=== PATIENT | male | born 1930 | race Caucasian/White ===

== ENCOUNTER 2017-01-15 18:24 | Inpatient (IN) | payer OTHER ==
--- NOTE | 2017-01-15 18:49 | PDOC ---
Fall HPI - General Chief Complaint: Fall Stated Complaint: FALL WITH RIGHT HIP/THIGH PAIN Date Seen by Provider: 01/15/17 Time Seen by Provider: 18:35 Source: POSITIVE: Patient, EMS Nurse's Notes Reviewed & Considered: Yes EMS Report Reviewed & Considered: Verbal - History of Present Illness Initial Comments: The patient is an 86-year-old male who is brought to the emergency department by ambulance from the half-way with complaints of right hip pain. He apparently fell getting into or out of bed and landed on his right hip. He was found by half-way staff on the floor. He is complaining of pain primarily in his right hip. He denies hitting his head and denies loss of consciousness. He denies any other associated injuries or complaints. He does not have any known history of hip surgery. Have you received a tetanus shot in the past 10 years?: Unknown - Patient Home Medications Home Medications: Home Medications Acetaminophen [Acetaminophen Extra Strength] 2 tab PO Q6H PRN tab 12/20/16 Atorvastatin Calcium 1 tab PO QHS tab 12/20/16 Docusate Sodium [Colace] 1 cap PO BID cap 12/20/16 Metoprolol Tartrate [Lopressor] 1 tab PO BID tab 12/20/16 Amlodipine Besylate 1 tab PO QD tab 12/21/16 Aspirin 1 tab PO QD tab 12/21/16 Calcium Carbonate [Antacid] 1 tab PO TID tab 12/21/16 Cholecalciferol (Vitamin D3) [Vitamin D3] 1 tab PO QD tab 12/21/16 Famotidine 1 tab PO QD tab 12/21/16 Isosorbide Mononitrate 15 mg PO QD tab 12/21/16 Levothyroxine Sodium 1 tab PO QD tab 12/21/16 Polyethylene Glycol 3350 [Miralax] 17 gm PO DAILY packet 12/21/16 Sodium Polystyrene Sulfonate [Kayexalate] 15 gm PO WEEKLY 01/15/17 - Patient Allergies Allergies/Adverse Reactions: Allergies Allergy/AdvReac Type Severity Reaction Status Date / Time Penicillins Allergy NAUSEA Verified 01/15/17 18:38 Past Medical History Past Medical History Reviewed: Other (please comment) (Written documentation reviewed) ROS - Limitations ROS Limitations: No Limitations (Review of systems otherwise noncontributory) Fall Physical Exam - General Appearance General Appearance: POSITIVE: Alert, Cooperative, No Acute Distress - HEENT HEENT: POSITIVE: Head Inspection Nml - Neck Neck: POSITIVE: Painless ROM, Trachea Midline - Respiratory / CVS Respiratory / CVS: POSITIVE: Breath Sounds Normal, No Respiratory Distress, Heart Sounds Normal, Regular Rate/Rhythm - Abdomen Abdomen: Soft: (All Quadrants), Denies Tenderness: (All Quadrants) Additional Abdominal Details: Pelvis is stable and nontender - Neuro / Psych Neuro / Psych: POSITIVE: Other (No focal neurologic deficits) - Extremities Additional Extremities Details: Examination of the right lower extremity reveals no obvious deformity or swelling to the right hip, he does have limited range of motion of the hip secondary to pain, no foreshortening of the leg Fall Progress - Results Reviewed by me Xrays/CTs/US Reviewed by me: Yes Discussed with Radiologist: Yes Radiology Findings: X-ray of the right hip reveals a femoral neck fracture on the right. CT scan of the pelvis reveals a comminuted right femoral neck fracture per radiologist. Lab Results Reviewed: Yes Lab Results:: Laboratory Results 01/15/17 Range/Units 19:57 WBC 7.34 (4.8-10.8) 10^3/uL RBC 2.63 L (4.70-6.10) 10^6/uL Hgb 7.9 L (14.0-18.0) g/dL Hct 25.9 L (42.0-52.0) % MCV 98.5 H (80-90) FL MCH 30.0 (27-31) PG MCHC 30.5 L (33-37) g/dL RDW Std Deviation 50.8 H (39-50) fL RDW Coeff of Sky 14.8 H (11.5-14.5) % Plt Count 243 (140-350) 10*3/uL MPV 9.5 (7.4-12.2) FL Immature Gran % (Auto) 0.3 (0-5) % Neut % (Auto) 67.2 (50-80) % Lymph % (Auto) 14.0 (10-50) % Sac % (Auto) 12.8 (5-15) % Eos % (Auto) 5.4 (0-8) % Baso % (Auto) 0.3 (0-1) % Immature Gran # (Auto) 0.02 10*3/UL Neut # (Auto) 4.93 10*3/UL Lymph # (Auto) 1.03 10*3/uL Sac # (Auto) 0.94 H (0.3-0.8) 10*3/UL Eos # (Auto) 0.40 10*3/UL Baso # (Auto) 0.02 10*3/UL WBC Morphology Comment Normal morphology (NORM) Plt Morphology Comment Normal morphology (NORM) RBC Morph Comment Normal morphology (NORM) PT 10.9 (9.7-11.4) secs INR 1.06 (0.00-5.90) N/A Sodium 142 (135-145) meq/L Potassium 4.7 (3.8-5.2) meq/L Chloride 107 (98-112) meq/L Carbon Dioxide 20 L (23-33) meq/L Anion Gap 15 (5-20) BUN 48 H (7-22) mg/dL Creatinine 4.3 H (0.70-1.50) mg/dL Estimated GFR Filler In BUN/Creatinine Ratio 11.16 (6-20) Glucose 116 H (78-110) mg/dL Calculated Osmolality 307.0 H (267-292) mOsm/kg Calcium 8.3 L (8.7-10.7) mg/dL Phosphorus 5.6 H (2.4-4.3) mg/dl Magnesium 2.1 (1.6-2.4) mg/dL Total Bilirubin 1.1 (0.3-1.2) mg/dL AST 49 (21-57) IU/L ALT 65 (21-72) IU/L Alkaline Phosphatase 912 H (38-126) IU/L Total Protein 6.9 (6.1-8.0) g/dL Albumin 3.1 L (3.5-4.8) g/dL Globulin 3.8 (2.50-4.10) g/dL Albumin/Globulin Ratio 0.80 L (1.3-2.0) mg/g EKG Interpreted/Reviewed By Me:: Yes EKG Interpretation:: POSITIVE: Normal Sinus Rhythm, Normal Rate, Normal Intervals, Normal QRS, Normal ST/T - Patient's Progress MDM / ED Course: Shortly after arrival x-rays of the right hip were obtained revealing an impacted femoral neck fracture. An IV was established and blood work was drawn. Dr. Hendrix was subsequently consulted and he reviewed the patient's x -rays. He was concerned that the fracture may be chronic. We do not have any prior x-rays from our facility as he has only been at the half-way here for about a month. Dr. Hendrix recommended CT of the hip which was done and reveals a comminuted fracture of the right femoral neck. We did contact the half-way to find out the patient's current weightbearing status. They stated that he "can bear weight however they usually don't let him because he is too weak" they report that he generally stands and transfers with assistance from the wheelchair to his bed. The patient himself told me that he uses a walker however I am unsure how reliable his history is. The patient does have a history of chronic renal failure and has a creatinine of 4.3 which is unchanged from what it was 2 weeks ago. He also has a history of peripheral vascular disease and previous stroke as well as history of COPD. I did discuss the patient with Dr. Amaro who has agreed to admit the patient. Dr. Hendrix will see the patient in the morning. He is unsure if the patient would be a surgical candidate or not. Findings were discussed with the patient. - Consult Counseled: POSITIVE: Patient, RE: Radiology Results, RE: DX, RE: Need for F/U Patient Care Time - Estimated PCT Patient Care Time (In Minutes): 30 Vital Signs - Recent Vital Signs Vital Signs: Vital Signs (Last 8 hours) Temp Pulse Pulse Resp BP BP Pulse Ox 01/15/17 21:00 97.6 F 64 16 149/79 94 01/15/17 20:40 97.3 F 59 L 20 143/41 95 01/15/17 18:44 97.5 F 60 20 151/72 98 01/15/17 18:24 60 20 151/72 98 - VS Reviewed Vital Signs Reviewed: Yes Discharge Clinical Impression: Fracture of neck of femur, Chronic renal failure, Anemia Discharge Disposition: Admit to Inpatient Condition: Stable Date Decision to Admit to Inpatient: 01/15/17 Time Decision to Admit to Inpatient: 19:45
[2017-01-15] MEDS ORDERED: NORMAL SALINE 10 ML SYRINGE FLUSH IVP PRN ×2 (19:23→20:57)
--- NOTE | 2017-01-15 19:40 | EKG ---
[address] [place] [address] Measurements Intervals [place] Rate: 59 P: 61 GA: 192 QRS: -42 QRSD: 117 T: 125 QT: 434 QTc: 433 Interpretive Statements SINUS BRADYCARDIA MARKED LEFT AXIS DEVIATION [QRS AXIS < -30] POSSIBLE LATERAL MYOCARDIAL INFARCTION [30 ms Q WAVE IN I/aVL/V5/V6], OF INDETERMINATE AGE No previous ECG available for comparison Electronically Signed On 01-16-17 08:08:32 MDT by Sinan Buck MD [email or web address]
[2017-01-15] MEDS: Sodium Chloride 0.9% 1,000 ML PRIMARY IV ONE ×2 (19:50→22:09)
[2017-01-15 20:01] LABS: BASOPHILS # (AUTO) 0.02 10*3/UL; BASOPHILS % (AUTO) 0.3 % (0-1); EOSINOPHILS % (AUTO) 5.4 % (0-8); HEMATOCRIT 25.9 % (42.0-52.0); HEMOGLOBIN 7.9 g/dL (14.0-18.0); LYMPHOCYTES # (AUTO) 1.03 10*3/uL; MEAN CORPUSCULAR HGB CONC 30.5 g/dL (33-37); MEAN CORPUSCULAR VOLUME 98.5 FL (80-90); MEAN PLATELET VOLUME 9.5 FL (7.4-12.2); MONOCYTES # (AUTO) 0.94 10*3/UL (0.3-0.8); MONOCYTES % (AUTO) 12.8 % (5-15); NEUTROPHILS # (AUTO) 4.93 10*3/UL; NEUTROPHILS % (AUTO) 67.2 % (50-80); RED BLOOD COUNT 2.63 10^6/uL (4.70-6.10)
[2017-01-15 20:03] LABS: PLATELET MORPHOLOGY COMMENT NORMAL MORPHOLOGY (NORM); RBC MORPHOLOGY COMMENT NORMAL MORPHOLOGY (NORM); WBC MORPHOLOGY COMMENT NORMAL MORPHOLOGY (NORM)
[2017-01-15 20:12] LABS: BLOOD UREA NITROGEN 48 mg/dL (7-22); BUN/CREATININE RATIO 11.16 (6-20); CALCIUM 8.3 mg/dL (8.7-10.7); MAGNESIUM 2.1 mg/dL (1.6-2.4); SERUM ALBUMIN 3.1 g/dL (3.5-4.8)
[2017-01-15] MEDS ORDERED: ACETAMINOPHEN 500 MG TABLET PO PRN (20:57)
[2017-01-15] MEDS ORDERED: LIDOCAINE W/ SODIUM BICARB 0.5 ML SYR SUBD PRN (20:57)
[2017-01-15] MEDS ORDERED: ONDANSETRON 4 MG/2 ML VIAL IVP PRN (20:57)
--- NOTE | 2017-01-15 20:57 | DI ---
HISTORY: Right hip pain. FINDINGS: There is a comminuted fracture involving the neck of the right femur. IMPRESSION: 1. Comminuted fracture involving the neck of the right femur.
--- NOTE | 2017-01-15 21:01 | DI ---
HISTORY: Right hip pain. TECHNIQUE: Contiguous axial unenhanced images of the pelvis were obtained and submitted for interpre tation. FINDINGS: There is a comminuted subcapital fracture involving the neck of the right femur. The pubic rami appear intact.The sacrum appears intact. There is coarsened trabeculation compatible with osteopenia. There is atherosclerotic calcification involving the distal abdominal aorta. The prostate gland is p rominent. The urinary bladder is irregular, and thickened. There is air within the urinary bladder which could be iatrogenic. Bilateral inguinal hernias are noted. There is scattered colonic diverti culosis. There is fecal impaction. The acetabulum does not appear fractured. There is no dislocation. IMPRESSION: 1. There is a comminuted subcapital fracture involving the neck of the right femur. 2. There is coarsened trabeculation compatible with osteopenia.
[2017-01-15] MEDS: HEPARIN 5000 UNIT/1 ML SUBCUT SCH (22:08)
[2017-01-15] MEDS: Metoprolol TARTRATE Tab 50 MG TAB PO SCH (22:08)
[2017-01-15] MEDS: DOCUSATE 100 MG CAPSULE PO SCH (22:08)
--- NOTE | 2017-01-15 23:11 | PDOC ---
History and Physical - History of Present Illness Date and Time of Service: 01/15/2017, 2305 Chief Complaint: Right hip pain History of Present Illness: This is a pleasant but very demented 86-year-old male who appears somewhat disheveled, and overall in a poor state of health. He apparently fell out of bed at [facility] and complained of right hip pain. He was found to have a comminuted femoral neck fracture on the right side that was confirmed by both x-ray and CT scan tonight. Patient is also known to be in renal failure which appears to be chronic with a creatinine of 4.3, has had a stroke in the past, has recently been homeless, has left facial droop, and a history of smoking and drinking. Other than that I cannot obtain any history from the patient and in fact he told me initially that my "elbow" was hurting. When I pointed to mild low, he said no right here and indicated that his hip was hurting. He however is resting comfortably in bed, and is not requiring any opiate medications for pain. I notice his alkaline phosphatase is also increased and it was prior to this fracture in December 2016. No liver enzyme elevation, and no imaging of the abdomen has been done tonight. Exacerbating factors cannot be determined due to the dementia. The patient did not try any interventions prior to being [facility] the [facility] to [facility] room. I will note that the patient apparently has no children, has 2 sisters that he states have passed on, and was recently homeless in [place], [place] prior to being admitted to [facility]. 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 The patient denied wanting any chest compressions, and does not want resuscitation. It would be futile to do this in this patient as it stands. At this time, the patient is also found to be anemic, with hemoglobin in the sevens range since December 2016, and all of these issues make this patient an extremely poor surgical candidate. Past Medical History Medical History: 1. Stroke with facial droop. Apparently this is a right- sided stroke. 2. Hypertension. 3. Tobacco abuse. 4. Alcohol use although none currently. 5. Hypothyroidism. 6. Anemia, hemoglobin range is in the sevens to 8 since December 2016. 7. Renal failure which appears to be chronic. 8. Dementia, advanced Surgical History: The patient cannot provide me any history of his prior surgeries due to his dementia Pertinent Family History: I cannot obtain this history from the patient due to his dementia. Past Social History: History of smoking in the past. Patient states that he drank alcohol in the past. No children. No siblings that are alive. Currently resides in [facility]. Tobacco Use: Former Smoker Substance Use Type: None Alcohol Use: None Medication / Allergies Home Medications: Home Medications Medication Instructions Recorded Confirmed Type Acetaminophen [Acetaminophen Extra 2 tab PO Q6H PRN tab 12/20/16 01/15/17 History Strength] Atorvastatin Calcium 1 tab PO QHS tab 12/20/16 01/15/17 History Docusate Sodium [Colace] 1 cap PO BID cap 12/20/16 01/15/17 History Metoprolol Tartrate [Lopressor] 1 tab PO BID tab 12/20/16 01/15/17 History Amlodipine Besylate 1 tab PO QD tab 12/21/16 01/15/17 History Aspirin 1 tab PO QD tab 12/21/16 01/15/17 History Calcium Carbonate [Antacid] 1 tab PO TID tab 12/21/16 01/15/17 History Cholecalciferol (Vitamin D3) 1 tab PO QD tab 12/21/16 01/15/17 History [Vitamin D3] Famotidine 1 tab PO QD tab 12/21/16 01/15/17 History Isosorbide Mononitrate 15 mg PO QD tab 12/21/16 01/15/17 History Levothyroxine Sodium 1 tab PO QD tab 12/21/16 01/15/17 History Polyethylene Glycol 3350 [Miralax] 17 gm PO DAILY packet 12/21/16 01/15/17 History Sodium Polystyrene Sulfonate 15 gm PO WEEKLY 01/15/17 01/15/17 History [Kayexalate] Allergies/Adverse Reactions: Allergies Allergy/AdvReac Type Severity Reaction Status Date / Time Penicillins Allergy NAUSEA Verified 01/15/17 18:38 Review of Systems - Review of Systems ROS Unobtainable: Due to Mental Status (I cannot obtain any review of systems due to the patient's dementia) Exam - Vitals Vital Signs: Vital Signs Temperature 97.6 F Temperature Source Temporal Artery Scan Pulse Rate [Pulse Oximeter] 64 Pulse Rate 59 Respiratory Rate 16 Blood Pressure [Right Arm] 149/79 Blood Pressure 143/41 Pulse Ox 94 Oxygen Delivery Method Room Air Height 5 ft 5 in Weight 115 lb - General General Appearance: POSITIVE: No Acute Distress, Cooperative, Disheveled, Thin - Head Head Exam: POSITIVE: Normal Inspection, Normocephalic, Atraumatic - Eye Eye Exam: POSITIVE: No Scleral Icterus - ENT ENT Exam: POSITIVE: Mucous Membranes Moist - Neck Neck Exam: POSITIVE: Normal Inspection, No Thyromegaly - Respiratory Respiratory Exam: POSITIVE: Clear to Auscultation - Bilaterally, Breathing Non Labored - Cardiovascular Cardiovascular Exam: POSITIVE: RRR, No Murmur, No Clicks, No Gallops, No Rubs, No JVD - GI/Abdominal GI/Abdominal Exam: POSITIVE: Normal Bowel Sounds, Non Tender, Non Distended, Soft - Rectal Rectal Exam: POSITIVE: Deferred - External Exam: POSITIVE: Deferred Exam: POSITIVE: Vega Catheter in Place (Urine appears clear on exam) - Extremities Extremities Exam: POSITIVE: No Clubbing Present, No Cyanosis Present, +1 Edema ( Pedal edema bilaterally) - Back Back Exam: POSITIVE: No CVA Tenderness - Neurological Neurological Exam: POSITIVE: Alert, Speech Intact / Clear Additional Neurological Exam Details: Patient has facial droop. He is not oriented to place time or situation. He is only oriented to person. - Psychiatric Psychiatric Exam: POSITIVE: Normal Affect, Normal Mood - Integumentary Additional Integumentary Exam Details: Has a skin tear on right lower extremity is dressed, dressing is clean, dry, intact. Results - Labs CBC and BMP: 01/15/17 19:57 01/15/17 19:57 Labs - Last 24 Hours: Laboratory Results 01/15/17 Range/Units 19:57 WBC 7.34 (4.8-10.8) 10^3/uL RBC 2.63 L (4.70-6.10) 10^6/uL Hgb 7.9 L (14.0-18.0) g/dL Hct 25.9 L (42.0-52.0) % MCV 98.5 H (80-90) FL MCH 30.0 (27-31) PG MCHC 30.5 L (33-37) g/dL RDW Std Deviation 50.8 H (39-50) fL RDW Coeff of Sky 14.8 H (11.5-14.5) % Plt Count 243 (140-350) 10*3/uL MPV 9.5 (7.4-12.2) FL Immature Gran % (Auto) 0.3 (0-5) % Neut % (Auto) 67.2 (50-80) % Lymph % (Auto) 14.0 (10-50) % [place] % (Auto) 12.8 (5-15) % Eos % (Auto) 5.4 (0-8) % Baso % (Auto) 0.3 (0-1) % Immature Gran # (Auto) 0.02 10*3/UL Neut # (Auto) 4.93 10*3/UL Lymph # (Auto) 1.03 10*3/uL Sab[place] # (Auto) 0.94 H (0.3-0.8) 10*3/UL Eos # (Auto) 0.40 10*3/UL Baso # (Auto) 0.02 10*3/UL WBC Morphology Comment Normal morphology (NORM) Plt Morphology Comment Normal morphology (NORM) RBC Morph Comment Normal morphology (NORM) PT 10.9 (9.7-11.4) secs INR 1.06 (0.00-5.90) N/A Sodium 142 (135-145) meq/L Potassium 4.7 (3.8-5.2) meq/L Chloride 107 (98-112) meq/L Carbon Dioxide 20 L (23-33) meq/L Anion Gap 15 (5-20) BUN 48 H (7-22) mg/dL Creatinine 4.3 H (0.70-1.50) mg/dL Estimated GFR Executive Director Of Nursing BUN/Creatinine Ratio 11.16 (6-20) Glucose 116 H (78-110) mg/dL Calculated Osmolality 307.0 H (267-292) mOsm/kg Calcium 8.3 L (8.7-10.7) mg/dL Phosphorus 5.6 H (2.4-4.3) mg/dl Magnesium 2.1 (1.6-2.4) mg/dL Total Bilirubin 1.1 (0.3-1.2) mg/dL AST 49 (21-57) IU/L ALT 65 (21-72) IU/L Alkaline Phosphatase 912 H (38-126) IU/L Total Protein 6.9 (6.1-8.0) g/dL Albumin 3.1 L (3.5-4.8) g/dL Globulin 3.8 (2.50-4.10) g/dL Albumin/Globulin Ratio 0.80 L (1.3-2.0) mg/g - EKG Data -: EKG Interpreted by Me Rate: Normal EKG Shows Normal: Sinus Rhythm - Imaging Status: Image Reviewed by Me (Patient has a hip fracture on the right side in the femoral neck region. This is noted on the pelvic x-ray and the CT of the pelvis.) Assessment and Plan - Patient Problems (1) Fractured femoral neck Current Visit: Yes Status: Acute Qualifiers: Encounter type: initial encounter Fracture type: closed Laterality : right Qualified Description: Closed fracture of neck of right femur, initial encounter Qualifier Code(s): (S72.001A) Fracture of unspecified part of neck of right femur, initial encounter for closed fracture (2) Chronic renal failure Current Visit: Yes Status: Acute Qualifiers: Chronic kidney disease stage: stage 5 Qualified Description: Chronic renal failure, stage 5 Qualifier Code(s): (N18.5) Chronic kidney disease, stage 5 (3) Anemia Current Visit: Yes Status: Acute Qualifiers: Anemia type: unspecified type Qualified Description: Anemia, unspecified type Qualifier Code(s): (D64.9) Anemia, unspecified (4) Elevated alkaline phosphatase level Current Visit: Yes Status: Acute (5) Dementia Current Visit: Yes Status: Acute Qualifiers: Dementia type: Alzheimer's disease Alzheimer's disease onset: late- onset Dementia behavioral disturbance: without behavioral disturbance Qualified Description: Late onset Alzheimer'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 I will get CT scan imaging of the abdomen tomorrow to better look at what may be going on in the liver with this elevated alkaline phosphatase. It was elevated at the end of May, and if not related to fracture could indicate some sort of liver lesion. IV fluids for now. Tylenol when necessary for pain. I would like to avoid opiates or stronger pain medications due to the advanced dementia. Antiemetics only written for. All stop the statin given his dementia. The patient is DO NOT RESUSCITATE, he does not want compressions, and quite frankly it would be futile in this situation given his age, overall medical problems. I will recheck a hemoglobin in the morning, hold off on blood transfusion tonight. If still in the sevens, and we proceed with any sort of plan, for surgery, then we may need to consider transfusion. Overall, this patient is a very poor surgical candidate based on his age, history of stroke, renal failure, anemia preoperatively, and very poor nutrition status. It is impossible to determine a metabolic equivalent for him. If there is any way that we can avoid repairing this hip, I think that would be the right thing to do for this patient, unless his pain is severe enough that it would be palliative in nature. In addition, reading through the emergency room report regarding the patient's overall activity level does not suggest that the patient would do well in the postoperative recovery state. Orthopedics's consult to see the patient in the morning. I will try to contact the patient's power of contact center analyst further instructions and explained the situation to them when we can find the number.
[2017-01-15] MEDS ORDERED: Sodium Chloride 0.9% 1,000 ML IV SCH (23:15)
[2017-01-16] MEDS: LEVOTHYROXINE 75 MCG TABLET PO SCH (05:15)
[2017-01-16] MEDS: HEPARIN 5000 UNIT/1 ML SUBCUT SCH ×3 (05:47→21:43)
[2017-01-16 06:03] LABS: BASOPHILS # (AUTO) 0.04 10*3/UL; BASOPHILS % (AUTO) 0.6 % (0-1); EOSINOPHILS # (AUTO) 0.39 10*3/UL; EOSINOPHILS % (AUTO) 6.3 % (0-8); HEMATOCRIT 24.8 % (42.0-52.0); HEMOGLOBIN 7.6 g/dL (14.0-18.0); LYMPHOCYTES # (AUTO) 0.94 10*3/uL; MEAN CORPUSCULAR HEMOGLOBIN 30.3 PG (27-31); MEAN CORPUSCULAR HGB CONC 30.6 g/dL (33-37); MEAN CORPUSCULAR VOLUME 98.8 FL (80-90); MONOCYTES # (AUTO) 0.81 10*3/UL (0.3-0.8); MONOCYTES % (AUTO) 13.1 % (5-15); NEUTROPHILS # (AUTO) 3.98 10*3/UL; NEUTROPHILS % (AUTO) 64.5 % (50-80); RED BLOOD COUNT 2.51 10^6/uL (4.70-6.10)
[2017-01-16 06:16] LABS: PLATELET MORPHOLOGY COMMENT NORMAL MORPHOLOGY (NORM); RBC MORPHOLOGY COMMENT NORMAL MORPHOLOGY (NORM); WBC MORPHOLOGY COMMENT NORMAL MORPHOLOGY (NORM)
[2017-01-16 06:24] LABS: BLOOD UREA NITROGEN 46 mg/dL (7-22); BUN/CREATININE RATIO 11.21 (6-20); CALCIUM 8.2 mg/dL (8.7-10.7)
[2017-01-16] MEDS: HYDROcodone-APAP 5 MG -325 MG TABLET PO PRN ×2 (07:57→16:26)
--- NOTE | 2017-01-16 08:59 | ORTHO.CON ---
Consult Note - Consult Consult Date: 01/16/17 Reason for Consult: PreOp Consulation : Ortho Requesting Physician: Dr. Johnson Primary Care Provider: Macho David MD - History of Present Illness History of Present Illness: Patient is an 86-year-old demented male who was brought in from the senior care last PM with complaints of right hip pain and discomfort. Patient had a fall with increasing pain and discomfort was noted that the senior care he had very limited mobility occasionally he will get up with a walker but would require maximum assist and was very unsteady and typically was discouraged from ambulating with a walker. Interestingly he has an issue with being homeless apparently was hospitalized in [place] most recently and possibly may have sustained this fracture while there. Patient is demented gives a history of being in [place] and possibly a fall there but I think his history is unreliable because of his dementia. In any case he was brought to the emergency room x-ray CT scan were obtained with evidence of old hip fracture and was admitted. Patient also with multiple medical problems to include but not limited to significant anemia and chronic renal insufficiency. Past Medical History Medical History: 1. Stroke with facial droop. Apparently this is a right- sided stroke. 2. Hypertension. 3. Tobacco abuse. 4. Alcohol use although none currently. 5. Hypothyroidism. 6. Anemia, hemoglobin range is in the sevens to 8 since December 2016. 7. Renal failure which appears to be chronic. 8. Dementia, advanced Surgical History: The patient cannot provide me any history of his prior surgeries due to his dementia Pertinent Family History: I cannot obtain this history from the patient due to his dementia. Past Social History: History of smoking in the past. Patient states that he drank alcohol in the past. No children. No siblings that are alive. Currently resides in [facility]. Tobacco Use: Former Smoker Substance Use Type: None Alcohol Use: None Medication / Allergies Home Medications: Home Medications Medication Instructions Recorded Confirmed Type Acetaminophen [Acetaminophen Extra 2 tab PO Q6H PRN tab 12/20/16 01/15/17 History Strength] Atorvastatin Calcium 1 tab PO QHS tab 12/20/16 01/15/17 History Docusate Sodium [Colace] 1 cap PO BID cap 12/20/16 01/15/17 History Metoprolol Tartrate [Lopressor] 1 tab PO BID tab 12/20/16 01/15/17 History Amlodipine Besylate 1 tab PO QD tab 12/21/16 01/15/17 History Aspirin 1 tab PO QD tab 12/21/16 01/15/17 History Calcium Carbonate [Antacid] 1 tab PO TID tab 12/21/16 01/15/17 History Cholecalciferol (Vitamin D3) 1 tab PO QD tab 12/21/16 01/15/17 History [Vitamin D3] Famotidine 1 tab PO QD tab 12/21/16 01/15/17 History Isosorbide Mononitrate 15 mg PO QD tab 12/21/16 01/15/17 History Levothyroxine Sodium 1 tab PO QD tab 12/21/16 01/15/17 History Polyethylene Glycol 3350 [Miralax] 17 gm PO DAILY packet 12/21/16 01/15/17 History Sodium Polystyrene Sulfonate 15 gm PO WEEKLY 01/15/17 01/15/17 History [Kayexalate] Allergies/Adverse Reactions: Allergies Allergy/AdvReac Type Severity Reaction Status Date / Time Penicillins Allergy NAUSEA Verified 01/16/17 06:21 Exam - - Exam: Examination patient has resting position on his bed and a left downside position with the right leg up no evidence of bruising or ecchymosis of swelling over the trochanteric region troches clearly visibly high riding. Patient able to move his toes. Does not have significant internal rotation of the knee and ankle. Radiographs of the pelvis show a hip fracture with no significant high riding of the trochanteric region smoothing of the bony edges and resorption of bone. A CT scan consistent with above this appears to have characteristics of an old fracture with a rounded smooth the edges with the vacant areas of bone and almost similar to a pseudoarthrosis. - Vitals Vital Signs: Vital Signs Temperature 98.2 F Temperature Source Temporal Artery Scan Pulse Rate [Pulse Oximeter] 58 Pulse Rate 59 Respiratory Rate 18 Blood Pressure [Right Arm] 166/78 Blood Pressure 143/41 Pulse Ox 95 Oxygen Delivery Method Room Air Height 5 ft 5 in Weight 52.163 kg Results - Labs CBC and BMP: 01/16/17 05:57 01/16/17 05:57 Labs - Last 24 Hours: Laboratory Results 01/16/17 Range/Units 05:57 WBC 6.18 (4.8-10.8) 10^3/uL RBC 2.51 L (4.70-6.10) 10^6/uL Hgb 7.6 L (14.0-18.0) g/dL Hct 24.8 L (42.0-52.0) % MCV 98.8 H (80-90) FL MCH 30.3 (27-31) PG MCHC 30.6 L (33-37) g/dL RDW Std Deviation 50.5 H (39-50) fL RDW Coeff of Sky 14.8 H (11.5-14.5) % Plt Count 228 (140-350) 10*3/uL MPV 10.0 (7.4-12.2) FL Immature Gran % (Auto) 0.3 (0-5) % Neut % (Auto) 64.5 (50-80) % Lymph % (Auto) 15.2 (10-50) % [place] % (Auto) 13.1 (5-15) % Eos % (Auto) 6.3 (0-8) % Baso % (Auto) 0.6 (0-1) % Immature Gran # (Auto) 0.02 10*3/UL Neut # (Auto) 3.98 10*3/UL Lymph # (Auto) 0.94 10*3/uL [place] # (Auto) 0.81 H (0.3-0.8) 10*3/UL Eos # (Auto) 0.39 10*3/UL Baso # (Auto) 0.04 10*3/UL WBC Morphology Comment Normal morphology (NORM) Plt Morphology Comment Normal morphology (NORM) RBC Morph Comment Normal morphology (NORM) Sodium 140 (135-145) meq/L Potassium 4.9 (3.8-5.2) meq/L Chloride 111 (98-112) meq/L Carbon Dioxide 19 L (23-33) meq/L Anion Gap 10 (5-20) BUN 46 H (7-22) mg/dL Creatinine 4.1 H (0.70-1.50) mg/dL Estimated GFR Field Return Repairer BUN/Creatinine Ratio 11.21 (6-20) Glucose 72 L (78-110) mg/dL Calculated Osmolality 300.0 H (267-292) mOsm/kg Calcium 8.2 L (8.7-10.7) mg/dL PSA Screen 3.72 (0.006-4.00) ng/ml Assessment and Plan - Assessment / Plan Additional Assessment/Plan Details: Impression: Multiple comorbidities including anemia and chronic renal insufficiency Right hip fracture old with significant resorption of the femoral neck and collapse. Plan: At this point we will proceed with trying to obtain records from [facility] in [place] to see if this fracture was sustained a previously and to try to determine the age of this. Certainly this would however a significant bearing on how you would proceed with any type of treatment. I also think it is copiously is more likely an overriding factor in the not proceeding with any type of surgical fixation. We will await these records and discussing case with hospitalist and likely see if we can push his x-rays and CT scan to [place] for second opinion. We discussed the patient's current condition and clinical findings as it pertains to the current situation. Surgical versus nonsurgical options risks and benefits were discussed and reviewed. Options moving forward include but are not limited to continued choice to live with their current condition; evaluate their current condition further with imaging studies and/or diagnostic testing, etc.; treat problem/problems with surgical versus nonsurgical methods. The patient demonstrates a clear understanding of our discussion. All questions were answered.
--- NOTE | 2017-01-16 08:59 | ORTHO.CON ---
Consult Note - Consult Consult Date: 01/16/17 Reason for Consult: PreOp Consulation : Ortho Primary Care Provider: Macho David MD Past Medical History Medical History: 1. Stroke with facial droop. Apparently this is a right- sided stroke. 2. Hypertension. 3. Tobacco abuse. 4. Alcohol use although none currently. 5. Hypothyroidism. 6. Anemia, hemoglobin range is in the sevens to 8 since December 2016. 7. Renal failure which appears to be chronic. 8. Dementia, advanced Surgical History: The patient cannot provide me any history of his prior surgeries due to his dementia Pertinent Family History: I cannot obtain this history from the patient due to his dementia. Past Social History: History of smoking in the past. Patient states that he drank alcohol in the past. No children. No siblings that are alive. Currently resides in [facility]. Tobacco Use: Former Smoker Substance Use Type: None Alcohol Use: None Medication / Allergies Home Medications: Home Medications Medication Instructions Recorded Confirmed Type Acetaminophen [Acetaminophen Extra 2 tab PO Q6H PRN tab 12/20/16 01/15/17 History Strength] Atorvastatin Calcium 1 tab PO QHS tab 12/20/16 01/15/17 History Docusate Sodium [Colace] 1 cap PO BID cap 12/20/16 01/15/17 History Metoprolol Tartrate [Lopressor] 1 tab PO BID tab 12/20/16 01/15/17 History Amlodipine Besylate 1 tab PO QD tab 12/21/16 01/15/17 History Aspirin 1 tab PO QD tab 12/21/16 01/15/17 History Calcium Carbonate [Antacid] 1 tab PO TID tab 12/21/16 01/15/17 History Cholecalciferol (Vitamin D3) 1 tab PO QD tab 12/21/16 01/15/17 History [Vitamin D3] Famotidine 1 tab PO QD tab 12/21/16 01/15/17 History Isosorbide Mononitrate 15 mg PO QD tab 12/21/16 01/15/17 History Levothyroxine Sodium 1 tab PO QD tab 12/21/16 01/15/17 History Polyethylene Glycol 3350 [Miralax] 17 gm PO DAILY packet 12/21/16 01/15/17 History Sodium Polystyrene Sulfonate 15 gm PO WEEKLY 01/15/17 01/15/17 History [Kayexalate] Allergies/Adverse Reactions: Allergies Allergy/AdvReac Type Severity Reaction Status Date / Time Penicillins Allergy NAUSEA Verified 01/16/17 06:21 Exam - Vitals Vital Signs: Vital Signs Temperature 98.2 F Temperature Source Temporal Artery Scan Pulse Rate [Pulse Oximeter] 58 Pulse Rate 59 Respiratory Rate 18 Blood Pressure [Right Arm] 166/78 Blood Pressure 143/41 Pulse Ox 95 Oxygen Delivery Method Room Air Height 5 ft 5 in Weight 52.163 kg Results - Labs CBC and BMP: 01/16/17 05:57 01/16/17 05:57 Labs - Last 24 Hours: Laboratory Results 01/16/17 Range/Units 05:57 WBC 6.18 (4.8-10.8) 10^3/uL RBC 2.51 L (4.70-6.10) 10^6/uL Hgb 7.6 L (14.0-18.0) g/dL Hct 24.8 L (42.0-52.0) % MCV 98.8 H (80-90) FL MCH 30.3 (27-31) PG MCHC 30.6 L (33-37) g/dL RDW Std Deviation 50.5 H (39-50) fL RDW Coeff of Sky 14.8 H (11.5-14.5) % Plt Count 228 (140-350) 10*3/uL MPV 10.0 (7.4-12.2) FL Immature Gran % (Auto) 0.3 (0-5) % Neut % (Auto) 64.5 (50-80) % Lymph % (Auto) 15.2 (10-50) % [place] % (Auto) 13.1 (5-15) % Eos % (Auto) 6.3 (0-8) % Baso % (Auto) 0.6 (0-1) % Immature Gran # (Auto) 0.02 10*3/UL Neut # (Auto) 3.98 10*3/UL Lymph # (Auto) 0.94 10*3/uL [place] # (Auto) 0.81 H (0.3-0.8) 10*3/UL Eos # (Auto) 0.39 10*3/UL Baso # (Auto) 0.04 10*3/UL WBC Morphology Comment Normal morphology (NORM) Plt Morphology Comment Normal morphology (NORM) RBC Morph Comment Normal morphology (NORM) Sodium 140 (135-145) meq/L Potassium 4.9 (3.8-5.2) meq/L Chloride 111 (98-112) meq/L Carbon Dioxide 19 L (23-33) meq/L Anion Gap 10 (5-20) BUN 46 H (7-22) mg/dL Creatinine 4.1 H (0.70-1.50) mg/dL Estimated GFR [place] BUN/Creatinine Ratio 11.21 (6-20) Glucose 72 L (78-110) mg/dL Calculated Osmolality 300.0 H (267-292) mOsm/kg Calcium 8.2 L (8.7-10.7) mg/dL PSA Screen 3.72 (0.006-4.00) ng/ml
[2017-01-16] MEDS: ASPIRIN 81 MG (BABY) CHEWABLE TABLET PO SCH (10:02)
[2017-01-16] MEDS: POLYETHYLENE GLYCOL 3350 17 GM POWDER PO SCH (10:02)
[2017-01-16] MEDS: DOCUSATE 100 MG CAPSULE PO SCH ×2 (10:03→21:43)
[2017-01-16] MEDS: Metoprolol TARTRATE Tab 50 MG TAB PO SCH ×2 (10:03→21:43)
[2017-01-16] MEDS: ISOSORBIDE MONONITRATE 30 MG SR 24H TABLET PO SCH (10:03)
--- NOTE | 2017-01-16 12:08 | DI ---
CT ABDOMEN W/O CONTRAST,01/16/2017 7:00 AM: Clinical History: Elevated alkaline phosphatase. Previous Exam: None at this facility. Findings: Multiple helically acquired CT images are obtained through the abdomen without contrast, and demonstr ates diffuse degenerative changes of the lumbar spine. Peripheral vascular calcifications are noted. Coronary artery calcifications are also seen. There is a large hiatal hernia. There is some layering sludge within the gallbladder. There is right-sided hydronephrosis. There are multiple left-sided simple renal cysts. Moderate stool seen throughout the colon. Calcium density within the lung bases involving the pleura. Facet hypertrophy is noted. Degenerative changes of the sacroiliac joints is noted. There is no mesenteric nor retroperitoneal lymphadenopathy. There is some subsegmental atelectasis in the lung bases. There is mild osteopenia. Impression: 1. No bony lesions identified. 2. Diffuse degenerative changes of the spine. 3. Hiatal hernia. 4. Layering stones within the gallbladder. 5. Coronary artery disease.
--- NOTE | 2017-01-16 14:37 | PDOC(PROG) ---
Date and Time of Service: 01/16/2017, 1430 Interval History: Patient was eating lunch when I examined him earlier. No complaints of chest pain or shortness breath. Shows me that he has some right-sided hip pain, but no evidence of any bruising, ecchymosis, swelling, and not tender when I push on it. I was able to obtain records from [place], and he broke his hip actually in July 2016 after a fall and refused surgical therapy at that time. He then subsequently had a stroke that he was recently admitted for an [place], and there is some discussion through the records about setting up a power of research attorney through the state as he has no family and has dementia, but I do not have that person was designated to be. Objective : Data - Labs CBC and BMP: 01/16/17 05:57 01/16/17 05:57 Labs - Last 24 Hours: Laboratory Results 01/16/17 Range/Units 05:57 WBC 6.18 (4.8-10.8) 10^3/uL RBC 2.51 L (4.70-6.10) 10^6/uL Hgb 7.6 L (14.0-18.0) g/dL Hct 24.8 L (42.0-52.0) % MCV 98.8 H (80-90) FL MCH 30.3 (27-31) PG MCHC 30.6 L (33-37) g/dL RDW Std Deviation 50.5 H (39-50) fL RDW Coeff of Sky 14.8 H (11.5-14.5) % Plt Count 228 (140-350) 10*3/uL MPV 10.0 (7.4-12.2) FL Immature Gran % (Auto) 0.3 (0-5) % Neut % (Auto) 64.5 (50-80) % Lymph % (Auto) 15.2 (10-50) % [place] % (Auto) 13.1 (5-15) % Eos % (Auto) 6.3 (0-8) % Baso % (Auto) 0.6 (0-1) % Immature Gran # (Auto) 0.02 10*3/UL Neut # (Auto) 3.98 10*3/UL Lymph # (Auto) 0.94 10*3/uL [place] # (Auto) 0.81 H (0.3-0.8) 10*3/UL Eos # (Auto) 0.39 10*3/UL Baso # (Auto) 0.04 10*3/UL WBC Morphology Comment Normal morphology (NORM) Plt Morphology Comment Normal morphology (NORM) RBC Morph Comment Normal morphology (NORM) Sodium 140 (135-145) meq/L Potassium 4.9 (3.8-5.2) meq/L Chloride 111 (98-112) meq/L Carbon Dioxide 19 L (23-33) meq/L Anion Gap 10 (5-20) BUN 46 H (7-22) mg/dL Creatinine 4.1 H (0.70-1.50) mg/dL Estimated GFR Power Plant Superintendent BUN/Creatinine Ratio 11.21 (6-20) Glucose 72 L (78-110) mg/dL Calculated Osmolality 300.0 H (267-292) mOsm/kg Calcium 8.2 L (8.7-10.7) mg/dL PSA Screen 3.72 (0.006-4.00) ng/ml - Imaging CT Scan Status: Image Reviewed by Me (I looked at the CT scan and also discussed with radiology. No evidence of liver lesions, but cannot give contrast. There is some simple cysts on the left kidney. The liver looked somewhat nodular to me but it was felt to be normal by radiology.) Objective : Exam - General General Appearance: No Acute Distress, Cooperative Additional General Exam Details: Vital Signs - Last Taken Temperature 97.8 F 01/16/17 11:11 Pulse Rate 58 L 01/16/17 11:11 Respiratory Rate 16 01/16/17 11:11 Blood Pressure 150/58 01/16/17 11:11 Pulse Ox 98 01/16/17 11:11 - Eye Eye Exam: No Scleral Icterus - Respiratory Respiratory Exam: Clear to Auscultation - Bilaterally, Breathing Non Labored Additional Respiratory Exam Details: Did not really follow commands well to take deep breaths on exam. - Cardiovascular Cardiovascular Exam: RRR, No Murmur, No Clicks, No Gallops, No Rubs, No JVD - Extremities Extremities Exam: No Clubbing Present, No Edema Present, No Cyanosis Present - Neurological Neurological Exam: Alert, Speech Intact / Clear Additional Neurological Exam Details: Has facial droop Assessment and Plan - Patient Problems (1) Fractured femoral neck Current Visit: Yes Status: Acute Qualifiers: Encounter type: initial encounter Fracture type: closed Laterality : right Qualified Description: Closed fracture of neck of right femur, initial encounter Qualifier Code(s): (S72.001A) Fracture of unspecified part of neck of right femur, initial encounter for closed fracture (2) Chronic renal failure Current Visit: Yes Status: Acute Qualifiers: Chronic kidney disease stage: stage 5 Qualified Description: Chronic renal failure, stage 5 Qualifier Code(s): (N18.5) Chronic kidney disease, stage 5 (3) Anemia Current Visit: Yes Status: Acute Qualifiers: Anemia type: unspecified type Qualified Description: Anemia, unspecified type Qualifier Code(s): (D64.9) Anemia, unspecified (4) Elevated alkaline phosphatase level Current Visit: Yes Status: Acute (5) Dementia Current Visit: Yes Status: Acute Qualifiers: Dementia type: Alzheimer's disease Alzheimer's disease onset: late- onset Dementia behavioral disturbance: without behavioral disturbance Qualified Description: Late onset Alzheimer's disease without behavioral disturbance Qualifier Code(s): (G30.1) Alzheimer's disease with late onset , (F02.81) Dementia in other diseases classified elsewhere with behavioral disturbance (6) History of CVA (cerebrovascular accident) Current Visit: Yes Status: Acute (7) Hypertension Current Visit: Yes Status: Acute Qualifiers: Hypertension type: essential hypertension Qualified Description: Essential hypertension Qualifier Code(s): (I10) Essential (primary) hypertension - Assessment / Plan Additional Assessment/Plan Details: I think overall, the patient has had a fall at the retirement and had increased pain in the right hip but did not injure it further. This is an old fracture and I do not think the patient is a surgical candidate for any sort of repair based on his age, renal failure, history of stroke, cerebral vascular disease, and carotid artery disease. I would like to track down the power of research attorney to see if he can discuss a do not transfer from the retirement as there is little we will be able to do to improve this patient's overall medical condition. Given his dementia, stop the statin We'll take a look with ultrasound to see if we see any lesions with the liver, but it appears that the isolated alkaline phosphatase elevation is probably from the hip. Continue vitamin D. Overall, I think the patient would benefit from a do not transport status as he is in the end stages of COPD, appears malnourished, and is in the end stages of cerebrovascular disease. His overall life expectancy is probably less than 6 months.
--- NOTE | 2017-01-16 15:41 | DI ---
US ABDOMEN LIMITED,01/16/2017 2:14 PM: Clinical History: Elevated alkaline phosphatase. Previous Exam: None at this facility. Findings: Multiple grayscale and color Doppler sonographic images are obtained of the right upper quadrant demo nstrating no evidence of hepatic mass. The urinary bladder is unremarkable except for some layering density within the dependent gallbladder . The gallbladder wall measures 2 mm. The common bile duct is normal. There is no free fluid. Impression: No evidence of hepatic mass. Layering material within the gallbladder may represent stones or sludge.
[2017-01-17] MEDS: HYDROcodone-APAP 5 MG -325 MG TABLET PO PRN (05:01)
[2017-01-17] MEDS: LEVOTHYROXINE 75 MCG TABLET PO SCH (05:01)
[2017-01-17] MEDS: HEPARIN 5000 UNIT/1 ML SUBCUT SCH (05:02)
[2017-01-17 08:09] VITALS: RESP 17; TEMP 98.7
[2017-01-17] MEDS: ASPIRIN 81 MG (BABY) CHEWABLE TABLET PO SCH (08:37)
[2017-01-17] MEDS: POLYETHYLENE GLYCOL 3350 17 GM POWDER PO SCH (08:37)
[2017-01-17] MEDS: ISOSORBIDE MONONITRATE 30 MG SR 24H TABLET PO SCH (08:37)
[2017-01-17] MEDS: Metoprolol TARTRATE Tab 50 MG TAB PO SCH (08:37)
[2017-01-17] MEDS: DOCUSATE 100 MG CAPSULE PO SCH (08:37)
--- NOTE | 2017-01-17 11:15 | DCSUMMARY ---
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 He presented after a fall from his bed in the long term and was admitted with a right hip fracture. Imaging appeared to be consistent with an old hip fracture and orthopedics felt that we should get more information. We got that from [place] and found that the patient actually had fractured this hip initially in July 2016. He is approximately 7 months out from that hip fracture, and it is not healed, but given his end-stage renal disease, creatinine at over 4, anemia, minimal pain, no evidence of acute injury, history of stroke, age, and life expectancy and dementia, it would not be appropriate to do surgery on this patient. I discussed this in depth with orthopedics. I think the patient would benefit from a Tylenol [id number] schedule. I will note that we explored alkaline phosphatase elevation, and I think it's probably in relation to the hip fracture as we did not see any evidence of mass and there is no evidence of prostate cancer or other cancer. He is not a candidate for colonoscopy. Given the resolution of this diagnostic workup and putting the information together, the patient, in my opinion is safe to go back to [facility] with transfer status only. I have no reason for follow catheter remain in place as he has urinary incontinence but no evidence of urinary obstruction. The catheter has been removed. The patient does not voice any complaints, but his history is entirely unreliable as he has end-stage dementia. CPR would be futile in this patient and has no place here. It is clinically not an appropriate procedure to be doing. Assessment and Plan: 1. As per discharge assessments noted 2. Disposition: Patient will be discharged to [facility] 3. Condition on discharge, stable and improved. Life expectancy overall is less than 6 months to live. 4. Diet: regular diet 5. Activities: Should probably be restricted to transfers with assistance only. 6. Follow-Up: 1. Primary care provider within 72 hours of discharge. 2. 7. Medications at the Time of Discharge: Home Medications Medication Instructions Recorded Confirmed Type Docusate Sodium [Colace] 1 cap PO BID cap 12/20/16 01/15/17 History Metoprolol Tartrate [Lopressor] 1 tab PO BID tab 12/20/16 01/15/17 History Amlodipine Besylate 1 tab PO QD tab 12/21/16 01/15/17 History Aspirin 1 tab PO QD tab 12/21/16 01/15/17 History Calcium Carbonate [Antacid] 1 tab PO TID tab 12/21/16 01/15/17 History Cholecalciferol (Vitamin D3) 1 tab PO QD tab 12/21/16 01/15/17 History [Vitamin D3] Isosorbide Mononitrate 15 mg PO QD tab 12/21/16 01/15/17 History Levothyroxine Sodium 1 tab PO QD tab 12/21/16 01/15/17 History Polyethylene Glycol 3350 [Miralax] 17 gm PO DAILY packet 12/21/16 01/15/17 History Acetaminophen [Tylenol] 1,000 mg PO TID #90 tablet 01/17/17 Rx 8. Time, care, counseling and coordination of care for this discharge is greater than 30 minutes. Exam - Vitals Vital Signs: Vital Signs Temperature 98.7 F Temperature Source Temporal Artery Scan Pulse Rate [Pulse Oximeter] 57 Pulse Rate 59 Respiratory Rate 17 Blood Pressure [Right Arm] 146/56 Blood Pressure 143/41 Pulse Ox 94 Oxygen Delivery Method Room Air Height 5 ft 5 in Weight 124 lb - General General Appearance: POSITIVE: No Acute Distress, Cooperative Additional General Exam Details: Does not follow commands to do deep breaths upon respiratory exam. Cooperative with exam in that he is not combative. - Head Additional Head Exam Details: Has right facial droop. - Respiratory Respiratory Exam: POSITIVE: Clear to Auscultation - Bilaterally, Breathing Non Labored - Cardiovascular Cardiovascular Exam: POSITIVE: RRR, No Murmur, No Clicks, No Gallops, No Rubs, No JVD - GI/Abdominal GI/Abdominal Exam: POSITIVE: Normal Bowel Sounds, Non Tender, Non Distended, Soft - Extremities Extremities Exam: POSITIVE: No Clubbing Present, No Edema Present, No Cyanosis Present, Pedal Edema Additional Extremities Exam Details: No tenderness with palpation on the right hip. - Neurological Neurological Exam: POSITIVE: Alert Additional Neurological Exam Details: Oriented only to person. Data Perinent Studies: Laboratory Results 01/15/17 01/16/17 01/16/17 Range/Units 19:57 05:00 05:57 WBC 7.34 6.18 (4.8-10.8) 10^3/uL RBC 2.63 L 2.51 L (4.70-6.10) 10^6/uL Hgb 7.9 L 7.6 L (14.0-18.0) g/dL Hct 25.9 L 24.8 L (42.0-52.0) % MCV 98.5 H 98.8 H (80-90) FL MCH 30.0 30.3 (27-31) PG MCHC 30.5 L 30.6 L (33-37) g/dL RDW Std Deviation 50.8 H 50.5 H (39-50) fL RDW Coeff of Sky 14.8 H 14.8 H (11.5-14.5) % Plt Count 243 228 (140-350) 10*3/uL MPV 9.5 10.0 (7.4-12.2) FL Immature Gran % (Auto) 0.3 0.3 (0-5) % Neut % (Auto) 67.2 64.5 (50-80) % Lymph % (Auto) 14.0 15.2 (10-50) % [place] % (Auto) 12.8 13.1 (5-15) % Eos % (Auto) 5.4 6.3 (0-8) % Baso % (Auto) 0.3 0.6 (0-1) % Immature Gran # (Auto) 0.02 0.02 10*3/UL Neut # (Auto) 4.93 3.98 10*3/UL Lymph # (Auto) 1.03 0.94 10*3/uL [place] # (Auto) 0.94 H 0.81 H (0.3-0.8) 10*3/UL Eos # (Auto) 0.40 0.39 10*3/UL Baso # (Auto) 0.02 0.04 10*3/UL WBC Morphology Comment Normal morphology Normal morphology (NORM) Plt Morphology Comment Normal morphology Normal morphology (NORM) RBC Morph Comment Normal morphology Normal morphology (NORM) PT 10.9 (9.7-11.4) secs INR 1.06 (0.00-5.90) N/A Sodium 142 140 (135-145) meq/L Potassium 4.7 4.9 (3.8-5.2) meq/L Chloride 107 111 (98-112) meq/L Carbon Dioxide 20 L 19 L (23-33) meq/L Anion Gap 15 10 (5-20) BUN 48 H 46 H (7-22) mg/dL Creatinine 4.3 H 4.1 H (0.70-1.50) mg/dL Estimated GFR Barman Barman BUN/Creatinine Ratio 11.16 11.21 (6-20) Glucose 116 H 72 L (78-110) mg/dL Calculated Osmolality 307.0 H 300.0 H (267-292) mOsm/kg Calcium 8.3 L 8.2 L (8.7-10.7) mg/dL Phosphorus 5.6 H (2.4-4.3) mg/dl Magnesium 2.1 (1.6-2.4) mg/dL Total Bilirubin 1.1 (0.3-1.2) mg/dL AST 49 (21-57) IU/L ALT 65 (21-72) IU/L Alkaline Phosphatase 912 H (38-126) IU/L Total Protein 6.9 (6.1-8.0) g/dL Albumin 3.1 L (3.5-4.8) g/dL Globulin 3.8 (2.50-4.10) g/dL Albumin/Globulin Ratio 0.80 L (1.3-2.0) mg/g PSA Screen 3.72 (0.006-4.00) ng/ml Vitamin B12 778 (239-931) pg/mL Serum Folate 18.0 (2.76-20.0) NG/ML Patient Problems - Patient Problem List (1) Fractured femoral neck Current Visit: Yes Status: Chronic Qualifiers: Encounter type: initial encounter Fracture type: closed Laterality : right Qualified Description: Closed fracture of neck of right femur, initial encounter Qualifier Code(s): (S72.001A) Fracture of unspecified part of neck of right femur, initial encounter for closed fracture (2) Chronic renal failure Current Visit: Yes Status: Chronic Qualifiers: Chronic kidney disease stage: stage 5 Qualified Description: Chronic renal failure, stage 5 Qualifier Code(s): (N18.5) Chronic kidney disease, stage 5 (3) Anemia Current Visit: Yes Status: Chronic Qualifiers: Anemia type: other cause Other causes of anemia: chronic disease, kidney Qualified Description: Anemia in chronic kidney disease Qualifier Code(s): (N18.9) Chronic kidney disease, unspecified, (D63.1) Anemia in chronic kidney disease (4) Elevated alkaline phosphatase level Current Visit: Yes Status: Acute (5) Dementia Current Visit: Yes Status: Acute Qualifiers: Dementia type: Alzheimer's disease Alzheimer's disease onset: late- onset Dementia behavioral disturbance: without behavioral disturbance Qualified Description: Late onset Alzheimer's disease without behavioral disturbance Qualifier Code(s): (G30.1) Alzheimer's disease with late onset , (F02.81) Dementia in other diseases classified elsewhere with behavioral disturbance (6) History of CVA (cerebrovascular accident) Current Visit: Yes Status: Acute (7) Hypertension Current Visit: Yes Status: Acute Qualifiers: Hypertension type: essential hypertension Qualified Description: Essential hypertension Qualifier Code(s): (I10) Essential (primary) hypertension
--- NOTE | 2017-01-17 11:48 | ORTHO.PROG ---
Last Taken Vital Signs: Vital Signs - Last Taken Temperature 98.7 F 01/17/17 08:06 Pulse Rate 57 L 01/17/17 08:06 Respiratory Rate 17 01/17/17 08:06 Blood Pressure 146/56 01/17/17 08:06 Pulse Ox 94 01/17/17 08:06 Subjective: Patient denies right hip pain today the later in the conversation he states he has some right hip pain. Objective: Examination show prominence of the trochanteric region rotation leg noted with shortening. He has normal motor and sensory median ankle and toes. Limited motion of the hip but can flex to about 80. Abduction passively he is stiff. Laboratory Results 01/16/17 Range/Units 05:00 Vitamin B12 778 (239-931) pg/mL Serum Folate 18.0 (2.76-20.0) NG/ML Skin is healthy no bruising or ecchymosis, no hematoma Assessment: Right hip fracture displaced, chronic this occurred 7 months ago when hospitalized at [facility] Chronic renal failure Plan: We discussed the patient's current condition and clinical findings as it pertains to the current situation. Surgical versus nonsurgical options risks and benefits were discussed and reviewed. Options moving forward include but are not limited to continued choice to live with their current condition; evaluate their current condition further with imaging studies and/or diagnostic testing, etc.; treat problem/problems with surgical versus nonsurgical methods. The patient demonstrates a clear understanding of our discussion. All questions were answered. Discussed the case with a our colleague Nevaeh barnes trauma complex fractures and joint replacements and the general opinion concurred with my about nonoperative treatment based on the multiple comorbidities in the longevity of the fracture. We will participate in the patient's care as needed but we will not proceed with surgical intervention at the current time for this displaced chronic hip fracture.
== END 2017-01-17 13:25 | DRG 536 ==
LOC: ER 18:24 → MED/SURG 20:25
PROVIDERS: ADMIT Family Medicine; ATTEND Family Medicine
DX: S72.001A Fracture of unspecified part of neck of right femur, initial encounter for closed fracture (principal); N18.5 Chronic kidney disease, stage 5; N18.9 Chronic kidney disease, unspecified; D64.9 Anemia, unspecified; W18.39XA Other fall on same level, initial encounter; D63.1 Anemia in chronic kidney disease; G30.1 Alzheimer's disease with late onset; F02.80 Dementia in other diseases classified elsewhere, unspecified severity, without behavioral disturbance, psychotic disturbance, mood disturbance, and anxiety; Z86.73 Personal history of transient ischemic attack (TIA), and cerebral infarction without residual deficits; I10 Essential (primary) hypertension
CPT/HCPCS: 36415; 72192; 73502; 74150; 76705; 80048; 80053; 82607; 82746; 83735; 84100; 85025; 85610; 87641; 93005; 93010; 99285; G0103; J1644; J7030